=== PATIENT | male | born 1965 | race African-American/Black ===

== ENCOUNTER 2019-02-22 07:49 | Emergency (ER) | payer SELFPAY ==
[~2019-02-22] VITALS: Ht 177.8 cm; Wt 100.0 kg
[2019-02-22] MEDS ORDERED: IBUPROFEN 600MG TABLET PO ONE (08:15)
[2019-02-22 10:43] VITALS: BP 137/85
== END 2019-02-22 11:15 | disposition home or self-care (01) ==
LOC: ER 07:58
DX: M25.562 Pain in left knee (principal); M25.561 Pain in right knee; F31.9 Bipolar disorder, unspecified; R56.9 Unspecified convulsions
CPT/HCPCS: 73560; 99283; Z7610

== ENCOUNTER 2019-03-02 11:12 | Emergency (ER) | payer SELFPAY ==
[~2019-03-02] VITALS: Ht 177.8 cm; Wt 91.0 kg
[2019-03-02 12:36] VITALS: BP 108/44
== END 2019-03-02 13:30 | disposition left against medical advice (07) ==
LOC: ER 11:12
DX: M79.89 Other specified soft tissue disorders (principal); Z53.21 Procedure and treatment not carried out due to patient leaving prior to being seen by health care provider